=== PATIENT | female | born 1950 | race Caucasian/White ===

== ENCOUNTER → 2016-10-02 | Outpatient (CLI) | payer MEDICARE, MEDICAID ==
[~2016-10-02] MED LIST: ASP81CT PO; ATEN-147 PO; CLPD75T PO; PRAV40TA PO
== END ==
LOC: RAD 13:38
PROVIDERS: ATTEND Internal Medicine Cardiovascular Disease
DX: I25.10 Atherosclerotic heart disease of native coronary artery without angina pectoris (principal); I65.23 Occlusion and stenosis of bilateral carotid arteries; Z87.81 Personal history of (healed) traumatic fracture; E78.4 Other hyperlipidemia; R73.01 Impaired fasting glucose; R00.2 Palpitations; R07.89 Other chest pain; R26.89 Other abnormalities of gait and mobility
CPT/HCPCS: 93923

== ENCOUNTER → 2016-10-09 | Outpatient (CLI) | payer MEDICARE, MEDICAID ==
[~2016-10-09] VITALS: Ht 157.5 cm; Wt 63.0 kg
[~2016-10-09] MED LIST changes: +CATHETER FLUSH 10 ML SYR IV PRN; +REGADENOSON 0.4 MG/5 ML SYR (LEXISCAN) IV ONE
[2016-10-09 09:17] VITALS: BP 150/69
[2016-10-09 09:22] VITALS: BP 160/71
[2016-10-09 09:24] VITALS: BP 148/87
[2016-10-09 09:26] VITALS: BP 133/73
--- NOTE | 2016-10-09 19:11 | STRESS TEST ---
DATE OF SERVICE: 10/09/2016 RESTING AND POST EXERCISE TECHNETIUM 99M TETROFOSMIN SPECT CT IMAGING ORDERING PHYSICIAN: Dr. Tom. CLINICAL DIAGNOSES: Coronary artery disease, hyperlipidemia, palpitations, chest discomfort. Baseline images were carried out after injection of 10.25 mCi of technetium 99M tetrofosmin. This was followed by 0.4 mg regadenoson and 33 mCi of technetium 99M tetrofosmin for stress imaging. The electrocardiogram showed sinus rhythm at baseline and did not change significantly with the regadenoson infusion. There was nonspecific T-wave abnormality throughout the study. Occasional isolated premature ventricular contractions were seen. The patient reported mild shortness of breath and mild abdominal discomfort following regadenoson infusion, which resolved in a few minutes. Review of images at rest and following stress does not indicate any significant perfusion defects consistent with significant myocardial ischemia or infarction. Gated images show normal global left ventricular systolic function with normal regional wall motion. Left ventricular ejection fraction is calculated to be 65%. Left ventricular inner diastolic volume is 35 mL. TID is absent (0.96). CONCLUSIONS: 1. No evidence of any significant myocardial ischemia or infarction on this study. 2. Normal regional wall motion. 3. Normal global left ventricular systolic function with a calculated ejection fraction of 65%. 4. Normal left ventricular cavity size. Job ID: [id number] DocumentID: [id number] Dictated Date: 10/09/2016 13:24:40 Hotel Engineer Date: 10/09/2016 16:57:37 Dictated By: BONIFACIO TOM MD, MA, FACP, FACC,
== END ==
LOC: CARD 07:32
PROVIDERS: ATTEND Internal Medicine Cardiovascular Disease
DX: I25.10 Atherosclerotic heart disease of native coronary artery without angina pectoris (principal); I65.23 Occlusion and stenosis of bilateral carotid arteries; Z87.891 Personal history of nicotine dependence; E78.4 Other hyperlipidemia; R73.01 Impaired fasting glucose; R00.2 Palpitations; R07.89 Other chest pain
CPT/HCPCS: 78452; 93017